=== PATIENT | female | born 1970 | race Caucasian/White ===

== ENCOUNTER 2016-11-11 21:52 | Emergency (ER) | payer BC ==
[2016-11-11 22:16] VITALS: O2SAT 98
--- NOTE | 2016-11-11 22:34 | ED.PDOC ---
History of Present Illness - General Chief Complaint: Upper Extremity Injury Stated Complaint: puncture to right hand Time Seen by Provider: 11/11/16 22:15 Source: patient, RN notes reviewed, Vital Signs reviewed Exam Limitations: no limitations - History of Present Illness Initial Comments: Patient comes in with c/o of L palm pain/injury. Reports she was opening a kitchen cabinet and a mug fell out onto her hand causing a small laceration, swelling and pain. Reports it was bleeding a lot. Pain is going into her 2nd & 3rd fingers. Occurred: just prior to arrival Pain - Upper Extremity: severe: Hand, left Method of Injury: direct blow Improving Factors: rest Worsening Factors: movement Allergies/Adverse Reactions: Allergies Penicillins Allergy (Mild, Verified 11/11/16 22:55) Home Medications: Ambulatory Orders Furosemide 11/11/16 Metformin HCl 11/11/16 Potassium 11/11/16 Spironolactone 11/11/16 Tramadol HCl 50 mg PO Q6HR PRN #12 tab 11/11/16 Review of Systems - Review of Systems Constitutional: States: no symptoms reported Respiratory: States: no symptoms reported Cardiology: States: no symptoms reported Gastrointestinal/Abdominal: States: no symptoms reported Musculoskeletal: States: see HPI Skin: States: see HPI Neurological: States: tingling - L 2nd & 3rd fingers All other Systems: No Change from Baseline Past Medical History (General) - Patient Medical History Hx Hypertension: Yes Hx Diabetes: No - states "body producs too much insulin" Hx MRSA: No Surgical History: Hysterectomy - Vaccination History Hx Tetanus, Diphtheria Vaccination: No - Female History Patient is a Female of Child Bearing Age (10 -59 yrs old): No Family Medical History - Family History Mother Family History: Unknown Physical Exam - Physical Exam General Appearance: Alert, No apparent distress, Well Developed, Well Groomed, Well Hydrated, Well Nourished Cardiovascular/Respiratory: normal peripheral pulses - with brisk capillary refill Elbow/Forearm Exam: normal inspection, no evidence of injury Wrist Exam: normal inspection, no evidence of injury Hand Exam: ecchymosis - L palm, limited ROM - due to pain, soft tissue tenderness - L palm, swelling - L palm Neuro/Tendon: normal motor functions, normal tendon functions, responds to pain Mental Status: alert, oriented x 3 Skin Exam: normal color - except L palm - 0.5cm laceration with surrounding hematoma, swelling and tenderness Comments: Vital Signs 11/11/16 22:11 Pulse Rate [ 84 Right] Respiratory 22 Rate Blood Pressure 167/104 [rt] O2 Sat by Pulse 98 Oximetry Progress - EKG/XRAY/CT XRAY: hand - No fracture or foreign body per Radiologist Procedures - Laceration/Wound Repair Left Volar Hand Wound Length (cm): 0.5 Wound's Depth, Shape: irregular Wound Explored: no foreign body removed Betadine Prep?: No - Cleaned with Hibiclens Volume Anesthetic (cc's): 0 Wound Repaired With: dermabond Layer Closure?: No Splint Applied?: No Sling Applied?: No Departure - Departure Clinical Impression: Contusion of hand, left Qualifiers: Encounter type: initial encounter Qualified Code(s): S60.222A - Contusion of left hand, initial encounter Laceration of left hand without complication, excluding fingers Qualifiers: Encounter type: initial encounter Qualified Code(s): S61.412A - Laceration without foreign body of left hand, initial encounter Time of Disposition: 23:04 Disposition: Discharge to Home or Self Care Condition: Good Departure Forms: ED Discharge - Pt. Copy, Patient Portal Self Enrollment Instructions: DI for Laceration Repair With Dermabond Diet: resume usual diet Activity: increase activity as tolerated Referrals: JUAN DUNAWAY MD/OBGYN [Primary Care Provider] - 1-2 Weeks Prescriptions: Tramadol HCl 50 mg PO Q6HR PRN #12 tab PRN Reason: Moderate To Severe Pain Home Medications: Ambulatory Orders Furosemide 11/11/16 Metformin HCl 11/11/16 Potassium 11/11/16 Spironolactone 11/11/16 Tramadol HCl 50 mg PO Q6HR PRN #12 tab 11/11/16
--- NOTE | 2016-11-11 22:41 | RAD ---
EXAM DESCRIPTION: Hand,Left 3 Views CLINICAL HISTORY: 46 years ,Female puncture with broken cup handle COMPARISON: None. TECHNIQUE: LEFT hand, Three view FINDINGS: No acute fractures or dislocations are identified. No osseous destructive lesions. IMPRESSION: No acute fractures are identified. If symptoms persist, followup is recommended in 7-10 days. Electronically signed by: Morelia Barrios 11/11/2016 10:39 PM CDT
[2016-11-11] MEDS ORDERED: CHLORHEXIDINE GLUCONATE 4 % 15 ML UD TOP ONE (22:42)
[2016-11-11] MEDS ORDERED: TETANUS,DIPHTHERIA,PERTUSSIS 1 EA SYG IM ONE (22:52)
[2016-11-11] MEDS ORDERED: HYDROcodone 7.5MG/APAP 325MG 1 EA TAB PO ONE (22:52)
[2016-11-11 23:22] VITALS: BP 150/90
== END 2016-11-11 23:25 | disposition home or self-care (01) ==
LOC: ER 21:52
DX: S61.412A Laceration without foreign body of left hand, initial encounter (principal); S60.222A Contusion of left hand, initial encounter; I10 Essential (primary) hypertension; Z23 Encounter for immunization; Z88.0 Allergy status to penicillin; W25.XXXA Contact with sharp glass, initial encounter; Y92.89 Other specified places as the place of occurrence of the external cause